=== PATIENT | female | born 1965 | race Caucasian/White ===

== ENCOUNTER 2017-03-13 17:06 | Emergency (ER) | payer OTHER ==
[~2017-03-13] VITALS: Ht 152.4 cm; Wt 77.7 kg
[~2017-03-13 17:06] MED LIST: ARIP10TA14 PO; TEMA30 PO
[2017-03-13] MEDS ORDERED: LORA2TAB2 PO (17:14)
[2017-03-13 17:57] LABS: BASOPHILS % (AUTO) 0.4 % (0.0-2.0); EOSINOPHILS % (AUTO) 7.8 % (1.0-6.0); HEMATOCRIT 42.8 % (36-46); HEMOGLOBIN 14.5 g/dL (12.0-16.0); LYMPHOCYTES # (AUTO) 2.1 K/uL (1.0-4.8); LYMPHOCYTES % (AUTO) 32.9 % (22.0-44.0); MEAN CORPUSCULAR HEMOGLOBIN 30.7 pg (26.0-34.0); MEAN CORPUSCULAR HGB CONC 33.9 G/dL (31.0-37.0); MEAN CORPUSCULAR VOLUME 90 fL (80-100); MONOCYTES # (AUTO) 0.4 K/uL (0.1-1.0); MONOCYTES % (AUTO) 6.1 % (2.0-9.0); NEUTROPHILS # (AUTO) 3.4 K/uL (1.8-7.7); NEUTROPHILS % (AUTO) 52.8 % (40.0-70.0); PLATELET COUNT (AUTO) 309 K/uL (150-450); RED BLOOD CELL COUNT(AUTO) 4.73 MIL/uL (4.00-5.20); WHITE BLOOD COUNT (AUTO) 6.5 K/uL (4.5-11.0)
[2017-03-13 18:00] LABS: ANION GAP 13 mmol/L (8-16); CALCIUM, TOTAL 9.8 mg/dL (8.8-10.5); CARBON DIOXIDE 27 mmol/L (22-29); CHLORIDE 103 mmol/L (98-107); CREATININE 1.04 mg/dL (0.60-1.30); GLOMERULAR FILTR. RATE CALC 56 mL/min (>60); POTASSIUM 3.4 mmol/L (3.5-5.1); SODIUM SERUM 143 mmol/L (136-145); UREA NITROGEN, BLOOD 11 mg/dL (7-18)
[2017-03-13 18:07] LABS: ALANINE AMINOTRANSFERASE 57 U/L (12-78); ALBUMIN 3.9 g/dL (3.4-5.0); ASPARTATE AMINOTRANSFERASE 38 U/L (15-37); BILIRUBIN,TOTAL 0.4 mg/dL (0.1-1.0); TOTAL PROTEIN, SERUM 8.2 g/dL (6.4-8.2)
[2017-03-13] MEDS ORDERED: LORazepam 2 MG TABLET PO ONE (19:00)
[2017-03-13 19:05] VITALS: BP 129/69
== END 2017-03-13 19:22 | disposition home or self-care (01) ==
LOC: EMS 17:08
DX: F41.9 Anxiety disorder, unspecified (principal); F20.9 Schizophrenia, unspecified; F32.9 Major depressive disorder, single episode, unspecified
CPT/HCPCS: 36415; 80053; 85025; 99284; G0480

== ENCOUNTER 2017-03-20 19:52 | Emergency (ER) | payer OTHER ==
[~2017-03-20] VITALS: Ht 152.4 cm; Wt 77.0 kg
[~2017-03-20 19:52] MED LIST changes: +LORA2TAB2 PO
[2017-03-20] MEDS ORDERED: LORazepam 2 MG/ML VIAL IM ONE (22:45)
[2017-03-20 23:22] VITALS: BP 124/83
== END 2017-03-20 23:25 | disposition home or self-care (01) ==
LOC: EMS 19:56
DX: F41.9 Anxiety disorder, unspecified (principal); F20.9 Schizophrenia, unspecified; G47.00 Insomnia, unspecified; F32.9 Major depressive disorder, single episode, unspecified
CPT/HCPCS: 96372; 99284; J2060

== ENCOUNTER 2018-08-30 10:11 | Emergency (ER) | payer OTHER ==
[~2018-08-30] VITALS: Ht 152.4 cm; Wt 74.5 kg
[~2018-08-30 10:11] MED LIST changes: -ARIP10TA14 PO; +ARIP10TA8 PO
[2018-08-30 11:13] VITALS: BP 128/79
[2018-08-30] MEDS ORDERED: LORazepam 2 MG/ML VIAL IM ONE (11:30)
== END 2018-08-30 12:57 | disposition home or self-care (01) ==
LOC: EMS 10:11
DX: G47.00 Insomnia, unspecified (principal); F41.9 Anxiety disorder, unspecified; F32.9 Major depressive disorder, single episode, unspecified; F20.9 Schizophrenia, unspecified; Z79.899 Other long term (current) drug therapy
CPT/HCPCS: 96372; 99284; J2060